=== PATIENT | male | born 1965 | race Two or more races ===

== ENCOUNTER 2016-11-12 11:40 | Emergency (ER) | payer OTHER ==
[~2016-11-12] VITALS: Ht 177.8 cm; Wt 95.3 kg
[2016-11-12] MEDS ORDERED: NKM (11:49)
[2016-11-12] MEDS ORDERED: Hydrogen Peroxide 120ml Bottle TOPIC ONE (11:49)
[2016-11-12] MEDS ORDERED: EPINEPHRINE INJ ONE (12:00)
[2016-11-12] MEDS ORDERED: LIDOCAINE INJ ONE (12:00)
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
[2016-11-12] MEDS ORDERED: Lidocaine 1% 10mg/ml/Epi 0.005mg/ml 30ml vial INJ ONE (12:15)
[2016-11-12] MEDS ORDERED: IBUPROFEN600 MG ORAL (14:23)
[2016-11-12] MEDS ORDERED: CEPHALEXIN500 MG ORAL (14:23)
[2016-11-12] MEDS ORDERED: Ketorolac 60mg Inj IM ONE (14:30)
[2016-11-12 14:34] VITALS: BP 120/74
[2016-11-12 14:38] VITALS: BP 98/78
[2016-11-12 14:40] VITALS: BP 98/78
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
== END 2016-11-12 14:45 | disposition home or self-care (01) ==
LOC: EDBD 11:40 → EMR 14:45
DX: S01.91XA Laceration without foreign body of unspecified part of head, initial encounter (principal); Y04.2XXA Assault by strike against or bumped into by another person, initial encounter; Y93.9 Activity, unspecified; Y92.9 Unspecified place or not applicable
CPT/HCPCS: 12052; 70450; 96372; 99284; Z7502